=== PATIENT | female | born 1975 | race Caucasian/White ===

== ENCOUNTER 2017-12-29 11:13 | Outpatient (CLI) | payer BC | END 2017-12-29 11:14 | disposition home or self-care (01) | LOC: BICMAMMO 11:13 | PROVIDERS: ATTEND Family Medicine | DX: Z12.31 Encounter for screening mammogram for malignant neoplasm of breast (principal); N63.10 Unspecified lump in the right breast, unspecified quadrant; Z80.3 Family history of malignant neoplasm of breast | CPT/HCPCS: 77063; 77067 ==

== ENCOUNTER 2018-01-16 10:06 | Outpatient (CLI) | payer BC | END 2018-01-16 10:07 | disposition home or self-care (01) | LOC: BICMAMMO 10:06 | PROVIDERS: ATTEND Family Medicine | DX: N63.10 Unspecified lump in the right breast, unspecified quadrant (principal) | CPT/HCPCS: G0279 ==

== ENCOUNTER 2019-07-29 08:15 | Outpatient (CLI) | payer BC ==
--- NOTE | 2019-07-29 09:00 | MMO ---
Bilateral MAMMO Bilat Diag [facility]. CLINICAL HISTORY: Patient is 43 years old and is seen for diagnostic exam. The patient has the following family history of breast cancer: maternal grandmother, at age 50. The patient has no personal history of cancer. VIEWS: The views performed were: bilateral mediolateral with tomosynthesis; bilateral craniocaudal with tomosynthesis; bilateral mediolateral oblique with tomosynthesis; and left craniocaudal. FILMS COMPARED: The present examination has been compared to prior imaging studies performed at [facility] on 12/29/2017 and 01/16/2018. This study has been interpreted with the assistance of computer-aided detection. MAMMOGRAM FINDINGS: There are scattered fibroglandular densities. There is a stable intramammary lymph node seen in the inner region of the right breast. There are no suspicious masses, suspicious calcifications, or new areas of architectural distortion. IMPRESSION: THERE IS NO MAMMOGRAPHIC EVIDENCE OF MALIGNANCY. A ROUTINE FOLLOW-UP MAMMOGRAM IN 1 YEAR IS RECOMMENDED. THE RESULTS OF THIS EXAM WERE SENT TO THE PATIENT. ACR BI-RADS Category 2 - Benign finding MAMMOGRAPHY NOTE: 1. A negative mammogram report should not delay a biopsy if a dominant of clinically suspicious mass is present. 2. Approximately 10% to 15% of breast cancers are not detected by mammography. 3. Adenosis and dense breasts may obscure an underlying neoplasm. Reported by: SUSIE FLORES MD Electonically Signed: [id number]
== END 2019-07-29 08:16 | disposition home or self-care (01) ==
LOC: BICMAMMO 08:15
PROVIDERS: ATTEND Family Medicine
DX: R92.8 Other abnormal and inconclusive findings on diagnostic imaging of breast (principal)
CPT/HCPCS: 77066; G0279

== ENCOUNTER 2021-02-19 15:50 | Outpatient (CLI) | payer BC | END 2021-02-19 15:51 | disposition home or self-care (01) | LOC: BICMAMMO 15:50 | PROVIDERS: ATTEND Family Medicine | DX: Z12.31 Encounter for screening mammogram for malignant neoplasm of breast (principal); Z80.3 Family history of malignant neoplasm of breast | CPT/HCPCS: 77063; 77067 ==

== ENCOUNTER 2023-06-03 08:52 | Outpatient (CLI) | payer BC | END 2023-06-03 08:53 | disposition home or self-care (01) | LOC: BICMAMMO 08:52 | PROVIDERS: ATTEND Family Medicine | DX: Z12.31 Encounter for screening mammogram for malignant neoplasm of breast (principal); Z80.3 Family history of malignant neoplasm of breast | CPT/HCPCS: 77063; 77067 ==

== ENCOUNTER 2024-08-26 15:06 | Outpatient (CLI) | payer BC | END 2024-08-26 15:07 | disposition home or self-care (01) | LOC: BICMAMMO 15:06 | PROVIDERS: ATTEND Family Medicine | DX: Z12.31 Encounter for screening mammogram for malignant neoplasm of breast (principal); N63.11 Unspecified lump in the right breast, upper outer quadrant; Z80.3 Family history of malignant neoplasm of breast | CPT/HCPCS: 77063; 77067 ==

== ENCOUNTER 2024-09-03 08:24 | Outpatient (CLI) | payer BC | END 2024-09-03 08:25 | disposition home or self-care (01) | LOC: BICMAMMO 08:24 | PROVIDERS: ATTEND Family Medicine | DX: N63.15 Unspecified lump in the right breast, overlapping quadrants (principal) | CPT/HCPCS: G0279 ==

== ENCOUNTER → 2024-09-16 | Day surgery (SDC) | payer BC | LOC: BICULT 12:31 | PROVIDERS: ATTEND Family Medicine | PROC: 0HBT3ZX Excision of Right Breast, Percutaneous Approach, Diagnostic (ICD-10-PCS; principal; 2024-09-16) | DX: C50.811 Malignant neoplasm of overlapping sites of right female breast (principal); Z88.5 Allergy status to narcotic agent | CPT/HCPCS: 19083; 88305 ==

== ENCOUNTER 2025-03-25 09:57 | Day surgery (SDC) | payer BC ==
[~2025-03-25 09:57] MED LIST: SODIUM CHLORIDE 0.9% IVPB SCH; TRASTUZUMAB ANNS IVPB SCH; diphenhydrAMINE 50 MG/ML VIAL IVP SCH
[2025-03-25] MEDS: SODIUM CHLORIDE 0.9% IVPB SCH (11:51)
[2025-03-25] MEDS: TRASTUZUMAB ANNS IVPB SCH (11:51)
[2025-03-25 12:28] VITALS: BP 127/66; TEMP 98.2
== END 2025-03-25 12:43 | disposition home or self-care (01) ==
LOC: ONC/OP 09:57
PROVIDERS: ATTEND Internal Medicine
DX: Z51.11 Encounter for antineoplastic chemotherapy (principal); C50.411 Malignant neoplasm of upper-outer quadrant of right female breast; Z88.8 Allergy status to other drugs, medicaments and biological substances
CPT/HCPCS: 96413; J1642; J7050; Q5117

== ENCOUNTER 2025-04-19 11:49 | Outpatient (CLI) | payer BC | END 2025-04-19 11:50 | disposition home or self-care (01) | LOC: BICMAMMO 11:49 | PROVIDERS: ATTEND Internal Medicine | DX: C50.411 Malignant neoplasm of upper-outer quadrant of right female breast (principal) | CPT/HCPCS: 77080 ==

== ENCOUNTER 2025-05-12 10:59 | Day surgery (SDC) | payer BC ==
[2025-05-12] MEDS: SODIUM CHLORIDE 0.9% IVPB SCH (12:23)
[2025-05-12] MEDS: TRASTUZUMAB ANNS IVPB SCH (12:23)
[2025-05-12 14:20] VITALS: BP 112/54; TEMP 98.4
== END 2025-05-12 14:22 | disposition home or self-care (01) ==
LOC: ONC/OP 10:59
PROVIDERS: ATTEND Internal Medicine
DX: Z51.11 Encounter for antineoplastic chemotherapy (principal); C50.411 Malignant neoplasm of upper-outer quadrant of right female breast
CPT/HCPCS: 96413; J1642; J7050; Q5117

== ENCOUNTER → 2025-06-13 | Day surgery (SDC) | payer BC | LOC: SPEC 12:35 | PROVIDERS: ATTEND Internal Medicine | DX: C50.411 Malignant neoplasm of upper-outer quadrant of right female breast (principal); Z51.11 Encounter for antineoplastic chemotherapy; Z88.8 Allergy status to other drugs, medicaments and biological substances; Z88.5 Allergy status to narcotic agent; Z88.1 Allergy status to other antibiotic agents | CPT/HCPCS: 36598; J1642; Q9967 ==

== ENCOUNTER 2025-06-23 11:04 | Day surgery (SDC) | payer BC ==
[2025-06-23 12:26] VITALS: BP 128/58; TEMP 97.5
[2025-06-23] MEDS: SODIUM CHLORIDE 0.9% IVPB SCH (12:27)
[2025-06-23] MEDS: TRASTUZUMAB ANNS IVPB SCH (12:27)
== END 2025-06-23 13:21 | disposition home or self-care (01) ==
LOC: ONC/OP 11:04
PROVIDERS: ATTEND Internal Medicine
DX: Z51.11 Encounter for antineoplastic chemotherapy (principal); C50.411 Malignant neoplasm of upper-outer quadrant of right female breast; Z88.5 Allergy status to narcotic agent
CPT/HCPCS: 96413; J7050; Q5117

== ENCOUNTER 2025-07-14 11:10 | Day surgery (SDC) | payer BC ==
[2025-07-14 12:34] VITALS: BP 129/63; TEMP 97.7
[2025-07-14] MEDS: TRASTUZUMAB ANNS IVPB SCH (12:42)
[2025-07-14] MEDS: SODIUM CHLORIDE 0.9% IVPB SCH (12:42)
== END 2025-07-14 13:38 | disposition home or self-care (01) ==
LOC: ONC/OP 11:10
PROVIDERS: ATTEND Internal Medicine
DX: Z51.11 Encounter for antineoplastic chemotherapy (principal); C50.411 Malignant neoplasm of upper-outer quadrant of right female breast; Z88.5 Allergy status to narcotic agent; Z88.1 Allergy status to other antibiotic agents; Z88.8 Allergy status to other drugs, medicaments and biological substances
CPT/HCPCS: 96413; J7050; Q5117

== ENCOUNTER 2025-08-09 11:00 | Day surgery (SDC) | payer BC ==
[2025-08-09] MEDS: SODIUM CHLORIDE 0.9% IVPB SCH (12:12)
[2025-08-09] MEDS: TRASTUZUMAB ANNS IVPB SCH (12:12)
[2025-08-09 14:31] VITALS: BP 145/71; TEMP 97.7
== END 2025-08-09 13:17 | disposition home or self-care (01) ==
LOC: ONC/OP 11:00
PROVIDERS: ATTEND Internal Medicine
DX: Z51.11 Encounter for antineoplastic chemotherapy (principal); C50.411 Malignant neoplasm of upper-outer quadrant of right female breast; Z88.5 Allergy status to narcotic agent; Z88.1 Allergy status to other antibiotic agents; Z88.8 Allergy status to other drugs, medicaments and biological substances
CPT/HCPCS: 96413; J1642; J7050; Q5117